=== PATIENT | female | born 1995 | race Caucasian/White ===

== ENCOUNTER 2022-08-18 18:56 | Emergency (ER) | payer OTHER, MEDICAID ==
[~2022-08-18] VITALS: Ht 157.5 cm; Wt 102.4 kg
[2022-08-18 19:52] VITALS: BP 137/66
== END 2022-08-18 22:30 | disposition home or self-care (01) ==
LOC: ER 18:58
DX: R42 Dizziness and giddiness (principal); Z86.73 Personal history of transient ischemic attack (TIA), and cerebral infarction without residual deficits
CPT/HCPCS: 70450